=== PATIENT | male | born 1995 | race Caucasian/White ===

== ENCOUNTER 2018-10-16 22:16 | Emergency (ER) | payer OTHER ==
[2018-10-16 22:20] VITALS: BP 206/111
[2018-10-16] MEDS ORDERED: EPIN0.3S (22:23)
[2018-10-16] MEDS ORDERED: ALB0.5 IH (22:23)
--- NOTE | 2018-10-16 22:26 | ER Report ---
History and Physical Time Seen By MD: 22:26 Hx. of Stated Complaint: TIGHTNESS WITH SOB FOR A FEW HOURS. DID A BREATHING TREATMENT A 30 MIN AGO WITHOUT IT HELPING. HAS A LOT OF CONGESTION HPI/ROS CHIEF COMPLAINT: Shortness of breath, congestion HISTORY OF PRESENT ILLNESS: Patient is a 23-year-old male with a history of asthma here with complaints of shortness breath, congestion for the past 1-2 days with acute worsening this evening. Patient did use his nebulizer, has been taking Advair, Singulair as prescribed. Patient does feel persistently short of breath but is afebrile, hemodynamically stable and denies cough. REVIEW OF SYSTEMS: Constitutional: No fever, no chills. Eyes: No discharge. ENT: No sore throat. Cardiovascular: No chest pain, no palpitations. Respiratory: No cough, + shortness of breath, congestion. Gastrointestinal: No abdominal pain, no vomiting. Genitourinary: No hematuria. Musculoskeletal: No back pain. Skin: No rashes. Neurological: No headache. Allergies: Coded Allergies: peanut (Verified Allergy, Severe, ANAPHYLAXIS, 10/16/18) Home Meds Active Scripts Azithromycin (ZITHROMAX) 250 Mg Tablet, 1 TAB PO QDAY for 4 Days, #4 TAB Prov:ELAINE JONES S DO 10/17/18 Prednisone (PREDNISONE) 50 Mg Tablet, 50 MG PO QDAY for 5 Days, #5 TAB Prov:ELAINE JONES S DO 10/17/18 Reported Medications Epinephrine (Symjepi) 0.3 Mg/0.3 Ml Syringe 10/16/18 Albuterol Sulfate (ALBUTEROL SULFATE) 2.5 Mg/0.5 Ml Vial.neb, 2.5 MG IH 10/16/18 Constitutional Vital Sign - Last 24 Hours 10/16/18 10/16/18 10/16/18 22:20 22:46 22:46 Temp 97.7 Pulse 130 116 114 Resp 16 20 20 B/P (MAP) 206/111 Pulse Ox 94 O2 Delivery Room Air Intake and Output 10/16/18 10/16/18 10/17/18 15:00 23:00 07:00 Intake Total 1000 ml Balance 1000 ml Physical Exam General Appearance: The patient is alert, has no immediate need for airway protection and no signs of toxicity. Uncomfortable appearing, nontoxic Eyes: Pupils equal and round no pallor or injection. ENT, Mouth: Mucous membranes are moist. Respiratory: There are no retractions, lungs are clear to auscultation. Cardiovascular: Sinus tachycardia Gastrointestinal: Abdomen is soft and non tender, no masses, bowel sounds normal. Neurological: No focal neurological deficits Skin: Warm and dry, no rashes. Musculoskeletal: Neck is supple non tender. Extremities are nontender, nonswollen and have full range of motion. DIFFERENTIAL DIAGNOSIS: After history and physical exam differential diagnosis was considered for shortness of breath including but not limited to pulmonary infectious process, COPD, asthma, pulmonary embolus and congestive heart failure. Medical Decision Making Data Points Result Diagram: 10/16/18222910/16/182229 Laboratory Hematology Test 10/16/18 22:30 Red Blood Count 6.41 M/uL (4.00-5.60) Mean Corpuscular Volume 81.5 fL (80.0-96.0) Mean Corpuscular Hemoglobin 28.6 pg (26.0-33.0) Mean Corpuscular Hemoglobin Concent 35.1 g/dL (32.0-36.0) Red Cell Distribution Width 12.5 % (11.5-14.5) Mean Platelet Volume 8.4 fL (7.2-11.1) Neutrophils (%) (Auto) 55.5 % (39.4-72.5) Lymphocytes (%) (Auto) 28.8 % (17.6-49.6) Monocytes (%) (Auto) 9.1 % (4.1-12.4) Eosinophils (%) (Auto) 6.1 % (0.4-6.7) Basophils (%) (Auto) 0.5 % (0.3-1.4) Nucleated RBC Relative Count (auto) 0.6 /100WBC Neutrophils # (Auto) 5.2 K/uL (2.0-7.4) Lymphocytes # (Auto) 2.7 K/uL (1.3-3.6) Monocytes # (Auto) 0.9 K/uL (0.3-1.0) Eosinophils # (Auto) 0.6 K/uL (0.0-0.5) Basophils # (Auto) 0.1 K/uL (0.0-0.1) Nucleated RBC Absolute Count (auto) 0.06 K/uL Sodium Level 140 mmol/L (137-145) Potassium Level 3.1 mmol/L (3.5-5.0) Chloride Level 102 mmol/L (98-107) Carbon Dioxide Level 24 mmol/L (22-30) Blood Urea Nitrogen 11 mg/dl (9-21) Creatinine 0.80 mg/dl (0.66-1.25) Glomerular Filtration Rate Calc > 60.0 Random Glucose 110 mg/dl (75-110) Calcium Level 9.5 mg/dl (8.4-10.2) Total Bilirubin 0.8 mg/dl (0.2-1.3) Aspartate Amino Transf (AST/SGOT) 26 U/L (0-35) Alanine Aminotransferase (ALT/SGPT) 51 U/L (0-56) Alkaline Phosphatase 131 U/L (0-126) Total Protein 7.2 g/dl (6.3-8.2) Albumin 4.6 g/dl (3.5-5.0) Chemistry Test 10/16/18 22:30 White Blood Count 9.4 k/uL (4.5-11.0) Red Blood Count 6.41 M/uL (4.00-5.60) Hemoglobin 18.3 g/dL (14.0-18.0) Hematocrit 52.2 % (42.0-52.0) Mean Corpuscular Volume 81.5 fL (80.0-96.0) Mean Corpuscular Hemoglobin 28.6 pg (26.0-33.0) Mean Corpuscular Hemoglobin Concent 35.1 g/dL (32.0-36.0) Red Cell Distribution Width 12.5 % (11.5-14.5) Platelet Count 269 K/uL (150-450) Mean Platelet Volume 8.4 fL (7.2-11.1) Neutrophils (%) (Auto) 55.5 % (39.4-72.5) Lymphocytes (%) (Auto) 28.8 % (17.6-49.6) Monocytes (%) (Auto) 9.1 % (4.1-12.4) Eosinophils (%) (Auto) 6.1 % (0.4-6.7) Basophils (%) (Auto) 0.5 % (0.3-1.4) Nucleated RBC Relative Count (auto) 0.6 /100WBC Neutrophils # (Auto) 5.2 K/uL (2.0-7.4) Lymphocytes # (Auto) 2.7 K/uL (1.3-3.6) Monocytes # (Auto) 0.9 K/uL (0.3-1.0) Eosinophils # (Auto) 0.6 K/uL (0.0-0.5) Basophils # (Auto) 0.1 K/uL (0.0-0.1) Nucleated RBC Absolute Count (auto) 0.06 K/uL Glomerular Filtration Rate Calc > 60.0 Calcium Level 9.5 mg/dl (8.4-10.2) Total Bilirubin 0.8 mg/dl (0.2-1.3) Aspartate Amino Transf (AST/SGOT) 26 U/L (0-35) Alanine Aminotransferase (ALT/SGPT) 51 U/L (0-56) Alkaline Phosphatase 131 U/L (0-126) Total Protein 7.2 g/dl (6.3-8.2) Albumin 4.6 g/dl (3.5-5.0) EKG/Imaging EKG Interpretation 12 lead EKG: Ventricular rate 110, sinus tachycardia, QTC 443, no ischemic changes. Rhythm: Sinus tachycardia [place]: normal QRS: normal ST segments: normal Imaging PATIENT NAME: Sushant Porras : 1995 MR: [id number] V: [id number] EXAM DATE: [id number] ORDERING PHYSICIAN: ELAINE JONES TECHNOLOGIST[place] [facility] [place]ush[place] : 1995 Visit/Account:[id number] Date of Sevice: 10/16/2018 AP CHEST 10/16/2018 10:35 PM. INDICATION: Respiratory distress. COMPARISON: None. FINDINGS: Lungs are well-expanded. There is no consolidation. No pleural effusion or pneumothorax. Heart size is normal. IMPRESSION: No acute abnormality. ED Course/Re-evaluation ED Course Patient is a 23-year-old male here with complaints of shortness breath, congestion in the setting of asthma which acutely worsened this evening. Patient was noted to be markedly tachycardic but had just taken his nebulizer treatment shortly prior to arrival and is mildly fluid deplete at time of evaluation. Labs were unremarkable with no leukocytosis, electrolytes are stable, potassium was mildly low patient did take albuterol nebulizers prior to arrival likely shunting potassium intracellularly. Patient was given IV fluid bolus, DuoNeb, methylprednisolone with moderate relief of symptoms. Chest x-ray showed no acute findings. Patient was started on azithromycin and given scripts for subsequent days of treatment, prednisone for 5 days. Recommend close PCP follow-up. Return precautions provided. Patient was stable at time of discharge. EKG was completed because patient complained of chest tightness and was unremarkable showing no ischemic findings. Decision to Disposition Date: October 17, 2018 Decision to Disposition Time: 00:16 Depart Departure Latest Vital Signs Vital Signs Date Time Temp Pulse Resp B/P (MAP) Pulse Ox O2 Delivery O2 Flow Rate FiO2 10/16/18 22:46 114 20 10/16/18 22:20 97.7 206/111 94 Room Air Impression: Primary Impression: Asthma exacerbation Condition: Improved Disposition: HOME OR SELF-CARE New Scripts Azithromycin (ZITHROMAX) 250 Mg Tablet 1 TAB PO QDAY for 4 Days, #4 TAB Prov: ELAINE JONES DO 10/17/18 Prednisone (PREDNISONE) 50 Mg Tablet 50 MG PO QDAY for 5 Days, #5 TAB Prov: ELAINE JONES DO 10/17/18 Patient Instructions: Asthma (ED) Additional Instructions: Please drink plenty of water. Please take azithromycin 1 tablet daily for the next 4 days. Please take prednisone 50 mg daily for 5 days. Please return immediately if you develop increasing shortness breath, loud or difficulty breathing, fevers, productive cough, nausea, vomiting. Please follow-up with your family doctor in the next 24-48 hours. ELAINE JONES DO October 16, 2018 22:26
[2018-10-16] MEDS ORDERED: ALBUTEROL/IPRATROPIUM 3 ML NEB NEB SCH (22:35)
[2018-10-16] MEDS ORDERED: NS(*) 0.9% 1000 ML BAG 1,000 ML IV ONE (22:35)
[2018-10-16] MEDS ORDERED: methylPREDNIS SUCC 125 MG/2ML IVP ONE (22:35)
[2018-10-16 22:42] LABS: PLATELET COUNT, AUTOMATED 269 K/uL (150-450)
--- NOTE | 2018-10-17 00:01 | RADIOLOGY IMAGING REPORT ---
FACILITY: [facility] PATIENT NAME: Sushant Porras : 1995 MR: [id number] V: [id number] EXAM DATE: ORDERING PHYSICIAN: ELAINE JONES TECHNOLOGIST: Location: [facility] Patient: Sushant Porras : 1995 Visit/Account:[id number] Date of Sevice: 10/16/2018 AP CHEST 10/16/2018 10:35 PM. INDICATION: Respiratory distress. COMPARISON: None. FINDINGS: Lungs are well-expanded. There is no consolidation. No pleural effusion or pneumothorax. Heart size i s normal. IMPRESSION: No acute abnormality. Report Dictated By: Elier Dorsey MD at 10/16/2018 11:56 PM Report E-Signed By: Elier Dorsey MD at 10/16/2018 11:56 PM WSN:[id number]
[2018-10-17] MEDS ORDERED: AZIT-1 PO (00:14)
[2018-10-17] MEDS ORDERED: PRED50TA22 PO (00:14)
[2018-10-17] MEDS ORDERED: AZITHROMYCIN 250 MG TAB PO ONE (00:15)
--- NOTE | 2018-10-17 04:44 | EKG ---
FACILITY: [facility] PATIENT NAME: DALIA ENRIQUEZ : [id number] MR: [id number] V: [id number] EXAM DATE: ORDERING PHYSICIAN: ELAINE JONES TECHNOLOGIST: [place]REST Test Reason : TACHYCARDIA Blood Pressure : / mmHG Vent. Rate : 110 BPM Atrial Rate : 110 BPM P-R Int : 154 ms QRS Dur : 082 ms QT Int : 328 ms P-R-T Axes : 081 076 058 degrees QTc Int : 443 ms Sinus tachycardia Right atrial enlargement Borderline ECG No previous ECGs available Confirmed by CHRIS BOWERS ([id number]) on 10/17/2018 6:40:33 AM Referred By: Confirmed By:CHRIS BOWERS
== END 2018-10-17 00:17 | disposition home or self-care (01) ==
LOC: ER 22:29
DX: J45.901 Unspecified asthma with (acute) exacerbation (principal); Z79.899 Other long term (current) drug therapy
CPT/HCPCS: 71045; 85025; 93005; 94640; 96360; 99284; J2930; J7030; J7620; Q0144; 82040; 82247; 82310; 82374; 82435; 82565; 82947; 84075; 84132; 84155; 84295; 84450; 84460; 84520